=== PATIENT | female | born 1965 | race Caucasian/White ===

== ENCOUNTER → 2018-03-05 | Day surgery (SDC) | payer OTHER ==
[2018-02-27 14:26] VITALS: Ht 157.5 cm; Wt 82.7 kg
[~2018-03-05] VITALS: Ht 157.5 cm; Wt 82.7 kg
[~2018-03-05] MED LIST: ASCO10003 PO; ATROPINE SULFATE 0.1 MG/ML 5ML SYR IV PRN; BUPRTAB51 PO; DILT120C68 PO; EpHEDrine SULFATE INJ 50 MG/ML AMP IV PRN; FOLI1TAB8 PO; IMT100 PO; KRIL1CAP7 PO; LEVO100T7 PO; LIDOCAINE HCL 2% 2 ML VIAL (20MG/ML) ONE; MISCCAP52 PO; MRC50 PO; MULTTAB5 PO; PROPOFOL IV EMULSION 10 MG/ML 20 ML VIAL ONE; RMCI IM; SERT-234 PO; SODIUM CHLORIDE 0.9% 500ML 500 ML IV ONE; TOPI50TA16 PO
--- NOTE | 2018-03-05 11:32 | Endo History and Physical ---
History & Physical Date of Service: Mar 05, 2018. Chief Complaint: Crohns Referring Physician: Dr. Crowder History of Present Illness 53 yo CF who presents for colonoscopy secondary to Crohn's disease. Past Medical History Hypertension, Thyroid Disease Past Surgical History Hx Cardiac Surgery: No Hx Internal Defibrillator: No Hx Pacemaker: No Hx Abdominal Surgery: Yes (TUBAL LIGATION , HYSTERECTOMY) Hx of Implantable Prosthesis: No Hx Post-Op Nausea and Vomiting: Yes Hx Cancer Surgery: No Hx Thoracic Surgery: No Hx Orthopedic: No Hx Urinary Tract Surgery: No Family History Colon CA, Polyp Social History Smoking Status: Current Every Day Smoker Hx Substance Use: No Hx Alcohol Use: No (RARELY) Allergies Coded Allergies: No Known Allergies (Verified , 03/05/18) Current Medications Reported Home Medications Medications Dose Route/Sig Max Daily Dose Days Date Category Turmeric Curcumin ([employer]) 1 Cap Cap 1 Cap PO QAM 02/27/18 Reported Wellbutrin-Xl (Bupropion HCl) 300 Mg Tabcr 300 Mg PO QAM 02/27/18 Reported Imitrex (Sumatriptan Succinate) 100 Mg Tab 100 Mg PO PRN 03/02/16 Reported Folvite (Folic Acid) 1 Mg Tab 1 Mg PO QAM 03/02/16 Reported Zoloft (Sertraline HCl) 100 Mg Tab 100 Mg PO HS 03/02/16 Reported Levothyroxine Sodium 100 Mcg Tab 1 Tab PO QAM 03/02/16 Reported Krill Oil [place]-3 (Krill Oil) 1 Cap Cap 1 Cap PO QPM 03/02/16 Reported Topamax (Topiramate) 50 Mg Tab 50 Mg PO HS 02/27/14 Reported Vitamin C (Ascorbic Acid) 1,000 Mg Tab 1 Tab PO QAM 02/26/14 Reported Remicade (Infliximab) 100 Mg/10 Ml Inj 1 Dose IM EVERY 8 WEEKS 02/26/14 Reported Mercaptopurine 50 Mg Tab 50 Mg PO QAM 02/26/14 Reported Tiazac (Diltiazem HCl) 120 Mg Capcr 120 Mg PO DINNER 02/26/14 Reported Centrum (Multiple Vitamins W/ Minerals) 1 Tab Tab 1 Tab PO QAM 02/26/14 Reported Vital Signs Weight (Kilograms): 82.73 Height (Feet): 5 Height (Inches): 2 Physical Exam General Appearance: WD/WN, no apparent distress Respiratory/Chest: Auscultation: breath sounds normal Cardiovascular: Heart Auscultation: RRR Abdomen: Bowel Sounds: normal Inspection & Palpation: soft, non-distended, no tenderness, guarding & rebound Assessment and Plan Assessment: 53 yo CF who presents for colonoscopy secondary to Crohn's disease. Plan: Proceed with colonoscopy.
--- NOTE | 2018-03-05 13:18 | Discharge Instructions ---
Endoscopy Patient Instructions Date / Procedure(s) Performed Mar 05, 2018. Colonoscopy Allergy Information Coded Allergies: No Known Allergies (Verified , 03/05/18) Discharge Date / Findings Mar 05, 2018. Cecal polyp Random colon biopsies Internal hemorrhoids Medication Instructions OK to resume all medications today as prescribed Reported Home Medications Medications Dose Route/Sig Max Daily Dose Days Date Category Turmeric Curcumin ([employer]) 1 Cap Cap 1 Cap PO QAM 02/27/18 Reported Wellbutrin-Xl (Bupropion HCl) 300 Mg Tabcr 300 Mg PO QAM 02/27/18 Reported Imitrex (Sumatriptan Succinate) 100 Mg Tab 100 Mg PO PRN 03/02/16 Reported Folvite (Folic Acid) 1 Mg Tab 1 Mg PO QAM 03/02/16 Reported Zoloft (Sertraline HCl) 100 Mg Tab 100 Mg PO HS 03/02/16 Reported Levothyroxine Sodium 100 Mcg Tab 1 Tab PO QAM 03/02/16 Reported Krill Oil [place]-3 (Krill Oil) 1 Cap Cap 1 Cap PO QPM 03/02/16 Reported Topamax (Topiramate) 50 Mg Tab 50 Mg PO HS 02/27/14 Reported Vitamin C (Ascorbic Acid) 1,000 Mg Tab 1 Tab PO QAM 02/26/14 Reported Remicade (Infliximab) 100 Mg/10 Ml Inj 1 Dose IM EVERY 8 WEEKS 02/26/14 Reported Mercaptopurine 50 Mg Tab 50 Mg PO QAM 02/26/14 Reported Tiazac (Diltiazem HCl) 120 Mg Capcr 120 Mg PO DINNER 02/26/14 Reported Centrum (Multiple Vitamins W/ Minerals) 1 Tab Tab 1 Tab PO QAM 02/26/14 Reported Provider Instructions Activity Restrictions - No exercising or heavy lifting for 24 hours. - Do not drink alcohol the day of the procedure. - Do not drive a car or operate machinery until the day after the procedure. - Do not make any important decisions or sign important papers in 24 hours after the procedure. Following Day: - Return to full activity which may include returning to work/school. Diet Start your diet with liquids and light foods (jello, soup, juice, toast). Then eat your usual diet if not nauseated. Treatment For Common After Affects For mild abdominal pain, bloating, or excessive gas: - Rest - Eat lightly - Lie on right side Follow-Up Information Follow-up with Dr. Crowder as scheduled Anesthesia Information What You Should Know You have had a procedure that required some medicine to reduce anxiety and discomfort. This treatment is called moderate sedation. After receiving the treatment, you may be sleepy, but you will be able to breathe on your own. The effects of the treatment may last for several hours. Follow these instructions along with Activity/Diet recommendations noted above: * Do NOT do anything where dizziness or clumsiness would be dangerous. * Rest quietly at home today, then you can be up and about tomorrow. * Have a responsible person stay with you the rest of today. * You may have had an I.V. today. If so, you may take the dressing off later today. Recommendations Call your doctor if: * Trouble breathing * Continuous vomiting for more than 24 hours * Temperature above 101 degrees * Severe abdominal pain or bloating * Pain not relieved by pain medicine ordered * There is increased drainage or redness from any incision * A large amount of rectal bleeding greater than 2-3 tablespoons. (If you had a polyp/s removed or have hemorrhoids, a small amount of blood - from the rectum is to be expected.) * You have any unanswered questions or concerns. IN THE EVENT OF A SERIOUS EMERGENCY, GO TO THE NEAREST EMERGENCY ROOM Your discharge instructions were prepared by provider Humberto Ferrer. Patient Instructions Signature Page Erika Barrett Patient (or Guardian) Signature/Date: I have read and understand the instructions given to me by my caregivers. Caregiver/RN/Doctor Signature/Date: The above-named patient and/or guardian has received patient instructions on this date. + Original Patient Signature Page (only) stays with chart. Please make copy for patient.
--- NOTE | 2018-03-05 13:31 | GI REPORT ---
Patient Name: Erika Barrett Procedure Date: 03/05/2018 1:20 PM Date of : 1965 Admit Type: Outpatient Age: 53 Gender: Female Attending MD: Humberto Ferrer DO Procedure: Colonoscopy Providers: Humberto Ferrer DO Referring MD: Yasmine Hanley Indications: Follow-up of Crohn's disease of the colon Medicines: Monitored Anesthesia Care Complications: No immediate complications. Estimated Blood Loss: Estimated blood loss: none. Procedure: Pre-Anesthesia Assessment: - Prior to the procedure, a History and Physical was performed, and patient medications and allergies were reviewed. The patient's tolerance of previous anesthesia was also reviewed. The risks and benefits of the procedure and the sedation options and risks were discussed with the patient. All questions were answered, and informed consent was obtained. Prior Anticoagulants: The patient has taken no previous anticoagulant or antiplatelet agents. ASA Grade Assessment: II - A patient with mild systemic disease. After reviewing the risks and benefits, the patient was deemed in satisfactory condition to undergo the procedure. After I obtained informed consent, the scope was passed under direct vision. Throughout the procedure, the patient's blood pressure, pulse, and oxygen saturations were monitored continuously. The scope was introduced through the anus and advanced to the terminal ileum. The colonoscopy was performed without difficulty. The patient tolerated the procedure well. The quality of the bowel preparation was good. The terminal ileum, the appendiceal orifice and the rectum were photographed. Findings: The perianal and digital rectal examinations were normal. A 4 mm polyp was found in the cecum. The polyp was sessile. The polyp was removed with a cold biopsy forceps. Resection and retrieval were complete. Inflammation characterized by erythema and pseudopolyps was found as small patches surrounded by normal mucosa 5 cm apart. The rectum, the sigmoid colon, the descending colon and the transverse colon were spared. This was mild in severity, and when compared to previous examinations, the findings are quiescent. Biopsies were taken with a cold forceps for histology. Non-bleeding internal hemorrhoids were found during retroflexion. The hemorrhoids were small. Impression: - One 4 mm polyp in the cecum, removed with a cold biopsy forceps. Resected and retrieved. - Inflammation was found in the colon 5 cm apart. This was mild in severity. The findings are quiescent compared to previous examinations. Biopsied. - Non-bleeding internal hemorrhoids. Recommendation: - Resume previous diet. - Continue present medications. - Repeat colonoscopy for surveillance based on pathology results. - Return to primary care physician as previously scheduled. Humberto BeatrizBa Ferrer, DO 03/05/2018 1:31:35 PM This report has been signed electronically. Note Initiated On: 03/05/2018 1:20 PM Number of Addenda: 0 I attest to the content of the Intraoperative Record and orders documented therein, exceptions below {[id number]}
--- NOTE | 2018-03-05 13:31 | Anesthesiology Progress Note ---
Anesthesia Post Op Note Date & Time Mar 05, 2018 at 13:31 Vital Signs Pain Intensity: 0 Vital Signs Past 12 Hours Date Time Temp Pulse Resp B/P (MAP) Pulse Ox O2 Delivery O2 Flow Rate FiO2 03/05/18 13:20 60 18 110/82 (91) 97 Room Air 03/05/18 11:30 36.7 62 14 135/96 (109) 96 Room Air Notes Mental Status: alert / awake / arousable, participated in evaluation Pt Amnestic to Procedure: Yes Nausea / Vomiting: adequately controlled Pain: adequately controlled Airway Patency, RR, SpO2: stable & adequate BP & HR: stable & adequate Hydration State: stable & adequate Anesthetic Complications: no major complications apparent
[2018-03-05 13:47] VITALS: BP 138/93; PULSE 74; O2SAT 98
== END | disposition home or self-care (01) ==
LOC: C.GI 10:48
PROVIDERS: ATTEND Internal Medicine
DX: K50.90 Crohn's disease, unspecified, without complications (principal); D12.0 Benign neoplasm of cecum; K64.8 Other hemorrhoids; E66.9 Obesity, unspecified; I10 Essential (primary) hypertension; Z68.33 Body mass index [BMI] 33.0-33.9, adult; F41.9 Anxiety disorder, unspecified; F32.9 Major depressive disorder, single episode, unspecified; E03.9 Hypothyroidism, unspecified; F17.200 Nicotine dependence, unspecified, uncomplicated; Z79.899 Other long term (current) drug therapy